=== PATIENT | female | born 1990 | race Caucasian/White ===

== ENCOUNTER 2017-04-26 11:38 | Emergency (ER) | payer BC, OTHER ==
[~2017-04-26] VITALS: Ht 160 cm; Wt 92.6 kg
[~2017-04-26 11:38] MED LIST: RELPAX40 MG PO; STRATTERA80 MG PO; TOPAMAX25 MG PO
[2017-04-26 12:00] VITALS: BP 116/72
[2017-04-26] MEDS ORDERED: ZOFRAN ODT4 MG PO (14:37)
[2017-04-26] MEDS ORDERED: VALIUM5 MG PO (14:37)
[2017-04-26] MEDS ORDERED: MOTRIN800 MG PO (14:37)
== END 2017-04-26 12:20 | disposition left against medical advice (07) ==
LOC: EME 11:38
DX: Z04.1 Encounter for examination and observation following transport accident (principal); Z53.21 Procedure and treatment not carried out due to patient leaving prior to being seen by health care provider

== ENCOUNTER 2017-04-26 14:01 | Emergency (ER) | payer OTHER ==
[~2017-04-26] VITALS: Ht 160 cm; Wt 92.5 kg
[2017-04-26] MEDS ORDERED: ZOFRAN ODT4 MG PO (14:37)
[2017-04-26] MEDS ORDERED: VALIUM5 MG PO (14:37)
[2017-04-26] MEDS ORDERED: MOTRIN800 MG PO (14:37)
[2017-04-26 15:10] VITALS: BP 118/76
== END 2017-04-26 15:11 | disposition home or self-care (01) ==
LOC: EME 14:01
DX: S06.0X0A Concussion without loss of consciousness, initial encounter (principal); M54.5 Low back pain; V49.50XA Passenger injured in collision with unspecified motor vehicles in traffic accident, initial encounter; F17.200 Nicotine dependence, unspecified, uncomplicated; Z88.0 Allergy status to penicillin
CPT/HCPCS: 99281; 99284

== ENCOUNTER 2017-04-27 13:02 | Emergency (ER) | payer OTHER ==
[~2017-04-27] VITALS: Ht 162.6 cm; Wt 91.3 kg
[~2017-04-27 13:02] MED LIST changes: +MOTRIN800 MG PO; +VALIUM5 MG PO; +ZOFRAN ODT4 MG PO
[2017-04-27 16:19] VITALS: BP 117/62
== END 2017-04-27 16:21 | disposition home or self-care (01) ==
LOC: EME 13:02
DX: M54.2 Cervicalgia (principal); R51 Headache; R42 Dizziness and giddiness; V43.62XA Car passenger injured in collision with other type car in traffic accident, initial encounter; Y92.410 Unspecified street and highway as the place of occurrence of the external cause; F17.200 Nicotine dependence, unspecified, uncomplicated
CPT/HCPCS: 72040; 99281; 99283